=== PATIENT | male | born 1950 | race Asian ===

== ENCOUNTER 2019-02-07 09:20 | Emergency (ER) | payer OTHER, MEDICAID ==
[~2019-02-07] VITALS: Ht 162.6 cm; Wt 50.9 kg
[2019-02-07 09:26] VITALS: BP 186/98
--- NOTE | 2019-02-07 09:32 | NUR ---
TO BED 9 WITH STEADY GAIT WITH FAMILY.
--- NOTE | 2019-02-07 09:35 | NUR ---
68 Y MALE BIB FAMILY C/O YELLOW DIARRHEA AND PERIUMBILICAL ABD PAIN X 3 DAYS. TAKING IMODIUM WITHOUT RELIEF. DIARHHEA X 5 TODAY. PER FAMILY, PT HAS AN EPISODE EVERY 2 HOURS APPROX. DENIES BLOOD IN STOOL. NO N/V. PT ADMITS TO DRINKING FIVE TEQUILA SHOTS DAILY X 2 YEARS. LAST DRINK LAST WEEK. AA0X4. VSS AT THIS TIME. BED IS DOWN, LOCKED, EBD RAIL X 1,ERMD TO EVALUATE PT. HX: STOMACH ULCERS, ALCOHOL ABUSE RX: DENIES
--- NOTE | 2019-02-07 09:37 | NUR ---
DR CHNE AT BEDSIDE
[2019-02-07] MEDS ORDERED: NACL 0.9% 1,000 ML IV SCH (09:45)
[2019-02-07] MEDS ORDERED: DIPHENOXYLATE /ATROPINE 2.5 MG TAB PO ONE (09:45)
--- NOTE | 2019-02-07 09:55 | NUR ---
FINISHED METAL REPAIRER AT BEDSIDE TO DRAW LABS.
[2019-02-07 10:17] LABS: BASOPHILS # (AUTO) 0.1 K/uL (0.00-0.22); BASOPHILS % (AUTO) 1.4 % (0.0-2.0); EOSINOPHILS # (AUTO) 0.2 K/uL (0-0.4); EOSINOPHILS % (AUTO) 2.6 % (0.0-4.0); HEMOGLOBIN 11.9 g/dL (12.0-18.0); LYMPHOCYTES # (AUTO) 1.6 K/uL (2.0-11.5); LYMPHOCYTES % (AUTO) 21.7 % (20.5-51.1); MEAN CORPUSCULAR HEMOGLOBIN 25 pg (27-31); MEAN CORPUSCULAR HGB CONC 31 g/dL (33-37); MEAN CORPUSCULAR VOLUME 78.1 fL (80-94); MONOCYTES # (AUTO) 0.4 K/uL (0.8-1.0); MONOCYTES % (AUTO) 5.1 % (1.7-9.3); NEUTROPHILS # (AUTO) 5.2 K/uL (1.8-7.7); NEUTROPHILS % (AUTO) 69.2 % (42.2-75.2); PLATELET COUNT (AUTO) 429 K/uL (140-450); RED BLOOD CELL COUNT(AUTO) 4.87 MIL/uL (4.20-6.10); RED CELL DISTRIBUTION WIDTH 21.4 % (11.6-13.7); WHITE BLOOD COUNT (AUTO) 7.6 K/uL (4.8-10.8)
--- NOTE | 2019-02-07 10:30 | NUR ---
PT IN BED, AA0X4, FAMILY BEDSIDE
[2019-02-07 10:34] LABS: ALBUMIN 3.6 g/dL (3.4-5.0); ANION GAP 13.2 (8-16); CARBON DIOXIDE 24.8 mmol/L (21-32); CREATININE 1.1 mg/dL (0.7-1.3); TOTAL BILIRUBIN 0.3 mg/dL (0.0-1.0)
--- NOTE | 2019-02-07 11:04 | NUR ---
PT AMB TO BATHROOM
[2019-02-07 11:34] VITALS: BP 154/82
--- NOTE | 2019-02-07 11:34 | NUR ---
Patient discharged with v/s stable. Written and verbal after care instructions given and explained. Rx of LOMOTIL given. Patient educated on indication of medication including possible reaction and side effects. Opportunity to ask questions provided and answered.ID band removed. Patient advised to follow up with PMD.
== END 2019-02-07 11:34 | disposition home or self-care (01) ==
LOC: MED 09:20
DX: R19.7 Diarrhea, unspecified (principal); R10.10 Upper abdominal pain, unspecified; R63.0 Anorexia; F17.210 Nicotine dependence, cigarettes, uncomplicated
CPT/HCPCS: 36415; 80053; 81002; 83690; 85025; 93005; 96360; 99284; J7030

== ENCOUNTER 2019-08-23 13:44 | Inpatient (IN) | payer OTHER, MEDICAID ==
[~2019-08-23] VITALS: Ht 157.5 cm; Wt 46.7 kg
[2019-08-23 13:50] VITALS: BP 162/91
--- NOTE | 2019-08-23 14:10 | NUR ---
69/M BIB DAUGHTER. COMPLAINING OF DIARRHEA FOR 2X DAYS. DAUGHTER REPORTED PT WAS CONTIPATED A COUPLE DAYS AGO AND WAS GIVEN SUPPOSITORY ON 08/21/19 AND SINCE THEN HE HAS HAD DIARRHEA. BS X4 NON TENDER, VOMITING CNAT KEEP ANYTHING DOWN. PAIN IN "LOWER BACK AND ANUS" WHEN HAVING A BM. CHEMO WAS DONE TODAY IN THE MORNING, HAS BEEN RECEIVING IT IT FOR APPROXIMATELY ONE MOTNH. DAUGHTER AND AT BEDSIDE. PMHX: HTN RX: CHEMO, LOSARTAN, REGLAN
--- NOTE | 2019-08-23 14:35 | NUR ---
DR. CHEN AT BEDSIDE
[2019-08-23] MEDS ORDERED: NACL 0.9% 1,000 ML IV SCH (14:39)
--- NOTE | 2019-08-23 15:10 | NUR ---
PORT A CATH ACCESSED WITH A 20G NEEDLE USING STERILE TECHNIQUE. FLUSHES EASILY, UNABLE TO DRAW BLOOD, NO SIGN OF INFILTRATION.
--- NOTE | 2019-08-23 15:17 | NUR ---
LAB AT BEDSIDE
[2019-08-23 15:42] LABS: BASOPHILS % (AUTO) 0.3 % (0.0-2.0); EOSINOPHILS % (AUTO) 0.5 % (0.0-4.0); HEMATOCRIT 42.6 % (36-52); HEMOGLOBIN 13.8 g/dL (12.0-18.0); LYMPHOCYTES # (AUTO) 1.8 K/uL (2.0-11.5); LYMPHOCYTES % (AUTO) 21.8 % (20.5-51.1); MEAN CORPUSCULAR HEMOGLOBIN 28 pg (27-31); MEAN CORPUSCULAR HGB CONC 32 g/dL (33-37); MEAN CORPUSCULAR VOLUME 85.4 fL (80-94); MONOCYTES # (AUTO) 0.7 K/uL (0.8-1.0); MONOCYTES % (AUTO) 8.4 % (1.7-9.3); NEUTROPHILS # (AUTO) 5.6 K/uL (1.8-7.7); PLATELET COUNT (AUTO) 344 K/uL (140-450); RED BLOOD CELL COUNT(AUTO) 4.99 MIL/uL (4.20-6.10); RED CELL DISTRIBUTION WIDTH 18.8 % (11.6-13.7); WHITE BLOOD COUNT (AUTO) 8.1 K/uL (4.8-10.8)
[2019-08-23 15:49] LABS: APPEARANCE,URINE CLEAR (CLEAR); BILIRUBIN,URINE NEGATIVE (NEGATIVE); BLOOD, URINE NEGATIVE (NEGATIVE); COLOR,URINE YELLOW (YELLOW); LEUKOCYTE ESTERASE ,URINE NEGATIVE (NEGATIVE); NITRITE, URINE NEGATIVE (NEGATIVE); PH,URINE 6.5 (5.0-9.0); UGLUCOSE NEGATIVE (NEGATIVE)
--- NOTE | 2019-08-23 15:57 | NUR ---
pt at ct at this time
[2019-08-23 15:58] LABS: ANION GAP 14.9 (8-16); CARBON DIOXIDE 25.1 mmol/L (21-32); CREATININE 1.1 mg/dL (0.7-1.3)
[2019-08-23 16:00] LABS: PROTHROMBIN TIME 8.9 secs (10.8-13.4)
[2019-08-23 16:15] LABS: ALBUMIN 3.9 g/dL (3.4-5.0); TOTAL BILIRUBIN 0.8 mg/dL (0.0-1.0)
[2019-08-23] MEDS ORDERED: METO-485 PO (16:25)
[2019-08-23] MEDS ORDERED: LOSA25TA32 PO (16:25)
[2019-08-23] MEDS ORDERED: MEGE40SU1 PO (16:25)
[2019-08-23] MEDS ORDERED: ONDA4TAB PO (16:25)
--- NOTE | 2019-08-23 16:30 | NUR ---
# 16 FR Manzo catheter with 10 ml utilizing sterile technique. Immediate return of 1400 ml CLEAR YELLOW urine noted. Bedside drainage bag placed below level of bladder. Urine sample collected and sent to lab. Pt tolerated procedure WELL.
[2019-08-23] MEDS ORDERED: DOCUSATE SODIUM 100 MG GELCAP PO PRN (17:15)
[2019-08-23] MEDS ORDERED: HYDROcodone/APAP 5/325 MG 1 TAB TAB PO PRN (17:15)
[2019-08-23] MEDS ORDERED: ONDANSETRON 4 MG/2 ML VIAL IM/IVP PRN (17:15)
[2019-08-23] MEDS ORDERED: ACETAMINOPHEN 325 MG TAB PO PRN (17:15)
[2019-08-23] MEDS ORDERED: MORPHINE SULFATE 2 MG/ML SYR IVP PRN (17:15)
--- NOTE | 2019-08-23 17:50 | NUR ---
Pt arrived to room 108A from ED via gurney. Able to transfer to bed with min assist. Pt aaox4, no signs of distress, no c/o pain at this time. and daughter arrived with pt to room. Right subclavian port-a-cath access intact & asymptomatic. Manzo cath in place & draining clear light rios urine. Pt oriented to room & unit, verbalized understanding & able to return demonstrate proper use of call light. Will cont to monitor.
[2019-08-23] MEDS: DEXT 5% /NACL 0.9% 1,000 ML IV SCH (18:00)
--- NOTE | 2019-08-23 18:00 | NUR ---
PATIENT ADMITTED TO MED-SURG/ TELE TO 108-A. VSS. REPORT GIVEN TO MADY
--- NOTE | 2019-08-23 18:00 | NUR ---
Patient will be admitted to care of DR. WHITE. Admited to TELE. Will go to room 108-A. Belongings list completed. Report TO MADY.
[2019-08-23 18:10] LABS: BARBITURATE, URINE NEG. ng/ml (NEG <=200); BENZODIAZEPINE, URINE NEG. ng/mL (NEG <=200); CANNABINOID, URINE NEG. ng/mL (NEG <=50); COCAINE, URINE NEG. ng/mL (NEG <=300); OPIATE, URINE NEG. ng/mL (NEG <=2000); PHENCYCLIDINE SCREEN,URINE NEG. ng/mL (NEG <=25)
[2019-08-23] MEDS ORDERED: BISACODYL 10 MG SUPP RC SCH (18:15)
[2019-08-23] MEDS ORDERED: PANTOPRAZOLE 40 MG INJ VIAL IVP SCH (18:15)
--- NOTE | 2019-08-23 19:00 | NUR ---
Report given to pm nurse Jorden. Pt resting in bed, no distress, family at bedside.
--- NOTE | 2019-08-23 19:01 | NUR ---
Received endorsement from AM shift RN; patient A/Ox4, able to make needs known, Micronesian speaking, on bedrest. Patient talking with daughter and ; introduced self, updated board. No SOB or distress noted, on room air. IV site on right subclavian Port-A-Cath, running IVF at 70mL/hr. Manzo in place. Bed in the lowest position, call light within reach. Initial assessment done. Will continue to monitor.
[2019-08-23 19:32] LABS: MAGNESIUM 2.6 mg/dL (1.8-2.4); PHOSPHORUS 4.2 mg/dL (2.5-4.9); THYROID STIMULATING HORMONE 1.62 uIU/mL (0.34-3.74)
[2019-08-23 20:00] VITALS: BP 147/74
--- NOTE | 2019-08-23 20:02 | NUR ---
Influenza A & B and MRSA collected at this time. Stool culture could not be collected, smear BM noted.
[2019-08-23] MEDS ORDERED: ONDANSETRON 4 MG TAB PO PRN (20:10)
--- NOTE | 2019-08-23 20:10 | NUR ---
Asked Dr. Han about Flu and Pneumonia vaccine administration; stated we cannot administer due to patient receiving chemotherapy.
--- NOTE | 2019-08-23 20:40 | NUR ---
Vitals taken, no distress noted.
[2019-08-23] MEDS: DOCUSATE SODIUM 100 MG GELCAP PO SCH (21:09)
--- NOTE | 2019-08-23 21:45 | NUR ---
Due meds given, tolerated well.
[2019-08-23] MEDS ORDERED: PROMETHAZINE 25 MG/ML VIAL IM PRN (21:50)
[2019-08-23] MEDS ORDERED: methylPREDNISolone 4 MG TAB PO SCH (23:00)
[2019-08-23] MEDS ORDERED: SODIUM PHOSPHATE 118 ML ENEM RC SCH (23:00)
--- NOTE | 2019-08-23 23:15 | NUR ---
Fleet enema given at this time. Vitals taken, no SOB or distress noted.
[2019-08-24] VITALS: BP 134/71
--- NOTE | 2019-08-24 01:25 | NUR ---
Rounds done; patient asleep, eyes closed, visible chest rise and fall noted.
--- NOTE | 2019-08-24 03:45 | NUR ---
Vitals taken, patient asleep, visible chest rise and fall noted.
[2019-08-24 04:00] VITALS: BP 122/77
--- NOTE | 2019-08-24 06:30 | NUR ---
Vitals stable, due meds given. Will endorse to AM shift RN for continuity of care.
[2019-08-24] MEDS: DEXT 5% /NACL 0.9% 1,000 ML IV SCH ×2 (06:34→21:47)
[2019-08-24 06:59] LABS: BASOPHILS % (AUTO) 0.5 % (0.0-2.0); EOSINOPHILS # (AUTO) 0.1 K/uL (0-0.4); EOSINOPHILS % (AUTO) 2.1 % (0.0-4.0); HEMATOCRIT 35.8 % (36-52); HEMOGLOBIN 11.7 g/dL (12.0-18.0); LYMPHOCYTES # (AUTO) 2.1 K/uL (2.0-11.5); MEAN CORPUSCULAR HEMOGLOBIN 28 pg (27-31); MEAN CORPUSCULAR HGB CONC 33 g/dL (33-37); MEAN CORPUSCULAR VOLUME 85.4 fL (80-94); MONOCYTES # (AUTO) 0.5 K/uL (0.8-1.0); MONOCYTES % (AUTO) 7.5 % (1.7-9.3); NEUTROPHILS # (AUTO) 3.6 K/uL (1.8-7.7); NEUTROPHILS % (AUTO) 56.9 % (42.2-75.2); PLATELET COUNT (AUTO) 294 K/uL (140-450); RED BLOOD CELL COUNT(AUTO) 4.19 MIL/uL (4.20-6.10); WHITE BLOOD COUNT (AUTO) 6.4 K/uL (4.8-10.8)
--- NOTE | 2019-08-24 07:10 | NUR ---
RECIEVED BEDSIDE REPORT FROM DIGITAL MARKETER NURSE. PATIENT ALERT AND ORIENTED X4. NO SIGNS OF DISTRESS. ON RA. SKIN IS INTACT. RIGHT CHEST PORTACATH AT D5NS AT 70ML/HR CLEAN, DRY, AND INTACT. PATIENT IS CONTINENT, MCINTOSH IN PLACE PATENT. AMBULATORY. ABLE TO MAKE NEEDS KNOWN. BED IN LOW POSITION. CALL LIGHT WITHIN REACH. WILL CONTINUE TO MONITOR.
[2019-08-24] MEDS ORDERED: ONDANSETRON 4 MG TAB PO PRN (07:15)
[2019-08-24 07:19] LABS: MAGNESIUM 2.4 mg/dL (1.8-2.4); PHOSPHORUS 2.8 mg/dL (2.5-4.9)
[2019-08-24 07:22] LABS: CARBON DIOXIDE 20.6 mmol/L (21-32); POTASSIUM 3.6 mmol/L (3.5-5.1)
[2019-08-24 07:23] LABS: CREATININE 0.8 mg/dL (0.7-1.3)
[2019-08-24 07:39] LABS: CHOL/HDL RATIO 3.3 (1-4.5)
[2019-08-24 08:00] VITALS: BP 139/87
[2019-08-24] MEDS ORDERED: BISACODYL 10 MG SUPP RC SCH (08:00)
[2019-08-24] MEDS: LOSARTAN 25 MG TAB PO SCH (08:35)
[2019-08-24] MEDS: DOCUSATE SODIUM 100 MG GELCAP PO SCH ×2 (08:37→21:08)
[2019-08-24] MEDS: PANTOPRAZOLE 40 MG INJ VIAL IVP SCH (08:37)
[2019-08-24] MEDS: MEGESTROL 400 MG/10 ML UDC PO SCH (08:38)
[2019-08-24] MEDS: METOCLOPRAMIDE 10 MG TAB PO SCH (08:39)
--- NOTE | 2019-08-24 08:40 | NUR ---
PATIENT HAS BEEN SCREENED AND CATEGORIZED HIGH NUTRITION RISK. PATIENT WILL BE SEEN WITHIN 1-2 DAYS OF ADMISSION. 08/24/19-08/25/[address]
[2019-08-24] MEDS: methylPREDNISolone 4 MG TAB PO SCH (08:41)
--- NOTE | 2019-08-24 08:55 | NUR ---
ADMINISTERED MEDS. PATIENT TOLERATED WELL. EDUCATED ON SIDE EFFECTS. WILL CONTINUE TO MONITOR THE PATIENT.
[2019-08-24] MEDS ORDERED: MINERAL OIL 135 ML ENEM RC ONE (10:00)
--- NOTE | 2019-08-24 10:20 | NUR ---
PATIENT HAD MEDIUM BM. PARACHUTE CUSHION INSTALLER UNAWARE STOOL SAMPLE NEEDED. WILL GET STOOL SAMPLE WITH THE NEXT BM. ADMINISTERED MINERAL OIL ENEMA. PATIENT TOLERATED WELL. LEFT-SIDE LYING AT THIS TIME. WILL CONTINUE TO MONITOR. AT BEDSIDE.
[2019-08-24] MEDS ORDERED: KETOROLAC 15 MG/ML VIAL IVP PRN (10:50)
--- NOTE | 2019-08-24 12:00 | NUR ---
PATIENT IN NO DISTRESS. WILL CONTINUE TO MONITOR THE PATIENT.
--- NOTE | 2019-08-24 12:37 | NUR ---
08/24/19 RD INITIAL ASSESSMENT COMPLETED PLEASE REFER TO NUTRITION ASSESSMENT UNDER CARE ACTIVITY FOR ESTIMATED NUTRITIONAL NEEDS. 1. RECOMMEND NA2GM PUREE DIET TOLERATED 2. RECOMMEND ENSURE TID 3. RD TO FOLLOW-UP 2-3 DAYS, HIGH RISK NATHANIEL KIMBALL, RD
--- NOTE | 2019-08-24 14:30 | NUR ---
PATIENT RESTING IN BED. AT BEDSIDE.
[2019-08-24] MEDS ORDERED: LACTULOSE 20 GM/30 ML UDC PO SCH (15:00)
--- NOTE | 2019-08-24 15:00 | NUR ---
STOOL COLLECTED AND WAS SENT TO LAB
--- NOTE | 2019-08-24 16:14 | NUR ---
administered meds. patient tolerated well. educated on side effects. no signs of distress. will continue to monitor the patient.
--- NOTE | 2019-08-24 18:00 | NUR ---
PATIENT RESTING IN BED. NO SIGNS OF DISTRESS. WILL CONTINUE TO MONITOR THE PATIENT.
--- NOTE | 2019-08-24 19:20 | NUR ---
gave bedside report to assistant shift supervisor nurse. PATIENT ENDORSED IN STABLE CONDITION.
--- NOTE | 2019-08-24 19:30 | NUR ---
RECEIVED BEDSIDE REPORT FROM AM SHIFT RN JOCY, FOR PT'S CONTINUITY OF CARE. PT IS AAO X4, WATCHING TV, FAMILY MEMBER AT BEDSIDE, IS ON ROOM AIR, HAS RIGHT SUBCLAVIAN PORTACATH, DENIES ANY PAIN AT THIS TIME. EXPLAINED TO PT AND FAMILY MEMBER THE PROPERTY MANAGEMENT BOOKKEEPER ROUTINE, THEY VERBALIZED UNDERSTANDING. SAFETY MEASURES IN PLACE. FALL PRECAUTION IN PLACE. CALL LIGHT IS WITHIN REACH. WILL MONITOR PT THROUGHOUT SHIFT.
--- NOTE | 2019-08-24 21:08 | NUR ---
ADMINISTERED SCHEDULED MEDICATIONS ORDERED. PT TOLERATED THEM WELL. PT TEACHING GIVEN REGARDING MEDICATION. PT VERBALIZED UNDERSTANDING. WILL CONTINUE TO MONITOR PT.
--- NOTE | 2019-08-24 23:30 | NUR ---
VS CHECKED AND CHARTED. PT DENIES ANY PAIN AT THIS TIME. WILL CONTINUE TO MONITOR PT.
[2019-08-25] VITALS: BP 125/77
[2019-08-25] MEDS: DEXT 5% /NACL 0.9% 1,000 ML IV SCH ×2 (00:20→17:10)
--- NOTE | 2019-08-25 02:00 | NUR ---
MADE ROUNDS. PT ASLEEP WITH NO SIGNS OF DISTRESS. WILL CONTINUE TO MONITOR PT.
--- NOTE | 2019-08-25 04:30 | NUR ---
MADE ROUNDS. PT ASLEEP WITH NO SIGNS OF DISTRESS. WILL CONTINUE TO MONITOR PT.
[2019-08-25 06:06] LABS: BASOPHILS % (AUTO) 0.5 % (0.0-2.0); EOSINOPHILS # (AUTO) 0.1 K/uL (0-0.4); EOSINOPHILS % (AUTO) 1.7 % (0.0-4.0); HEMATOCRIT 35.9 % (36-52); HEMOGLOBIN 11.9 g/dL (12.0-18.0); LYMPHOCYTES # (AUTO) 2.1 K/uL (2.0-11.5); LYMPHOCYTES % (AUTO) 37.3 % (20.5-51.1); MEAN CORPUSCULAR HEMOGLOBIN 28 pg (27-31); MEAN CORPUSCULAR HGB CONC 33 g/dL (33-37); MEAN CORPUSCULAR VOLUME 85.5 fL (80-94); MONOCYTES # (AUTO) 0.4 K/uL (0.8-1.0); MONOCYTES % (AUTO) 6.6 % (1.7-9.3); NEUTROPHILS # (AUTO) 3.1 K/uL (1.8-7.7); NEUTROPHILS % (AUTO) 53.9 % (42.2-75.2); PLATELET COUNT (AUTO) 290 K/uL (140-450); RED CELL DISTRIBUTION WIDTH 17.9 % (11.6-13.7); WHITE BLOOD COUNT (AUTO) 5.7 K/uL (4.8-10.8)
[2019-08-25 06:17] LABS: CARBON DIOXIDE 20.1 mmol/L (21-32); CREATININE 0.8 mg/dL (0.7-1.3); POTASSIUM 4.1 mmol/L (3.5-5.1)
--- NOTE | 2019-08-25 06:30 | NUR ---
PT AWAKE, LYING DOWN IN BED DENIES ANY PAIN. WILL ENDORSE TO AM SHIFT RN FOR PT'S CONTINUITY OF CARE.
--- NOTE | 2019-08-25 07:03 | NUR ---
RECEIVED REPORT FROM VORTEX OPERATOR NURSE. PT AAOX4, AT BEDSIDE, NO C/O PAIN. NOTED RT SUBCLAVIAN PORT-A-CATH RUNNING IVF PER ORDER. RESPIRATIONS EVEN AND UNLABORED ON RA. ABD SOFT, ACTIVE BS, LBM 08/25 LIQUID BUT NON-WATERY STOOL. PT HAS F/C IN PLACE, DRAINING YELLOW URINE. PT ON FALL RISK PRECAUTIONS, SAFETY MEASURES IN PLACE, CALL LIGHT WITHIN REACH. REVIEWED POC WITH PT AND FAMILY, VERBALIZED UNDERSTANDING.
[2019-08-25 08:00] VITALS: BP 139/73
[2019-08-25] MEDS ORDERED: BISACODYL 10 MG SUPP RC SCH (09:00)
[2019-08-25] MEDS ORDERED: MAGNESIUM HYDROXIDE 2400 MG/30 ML UDC PO SCH (09:00)
[2019-08-25] MEDS ORDERED: MINERAL OIL 135 ML ENEM RC SCH (09:00)
[2019-08-25] MEDS: MEGESTROL 400 MG/10 ML UDC PO SCH (09:41)
[2019-08-25] MEDS: DOCUSATE SODIUM 100 MG GELCAP PO SCH ×2 (09:42→20:34)
[2019-08-25] MEDS: METOCLOPRAMIDE 10 MG TAB PO SCH (09:42)
[2019-08-25] MEDS: PANTOPRAZOLE 40 MG INJ VIAL IVP SCH (09:43)
[2019-08-25] MEDS: LOSARTAN 25 MG TAB PO SCH (09:43)
[2019-08-25] MEDS: methylPREDNISolone 4 MG TAB PO SCH (09:44)
--- NOTE | 2019-08-25 09:44 | NUR ---
ADMINISTERED MEDICATIONS PER ORDER, PT IS AWARE OF INDICATIONS AND POTENTIAL SIDE EFFECTS FOR EACH MEDICATION. INSTRUCTED PT TO HOLD MINERAL OIL ENEMA TOLERATED, PT VERBALIZED UNDERSTANDING.
--- NOTE | 2019-08-25 10:08 | NUR ---
PT HAD BOWEL MOVEMENT, LIQUID BUT NON-WATERY. ADMINISTERED SUPPOSITORY PER ORDER, PT IS AWARE OF INDICATIONS AND POTENTIAL SIDE EFFECTS.
--- NOTE | 2019-08-25 12:15 | NUR ---
PT HAS NO SIGNS OF DISTRESS AT THIS TIME. AND VISITORS AT BEDSIDE.
--- NOTE | 2019-08-25 14:50 | NUR ---
PT RESTING IN RIGHT LATERAL SIDE, RESPIRATIONS EVEN AND UNLABORED ON RA.
[2019-08-25 16:00] VITALS: BP 125/74
--- NOTE | 2019-08-25 17:10 | NUR ---
ADMINISTERED IVF PER ORDER. PT HAS NO C/O PAIN AT THIS TIME.
--- NOTE | 2019-08-25 18:30 | NUR ---
TOTAL URINE OUTPUT FOR SHIFT IS 1,100 ML OF CLEAR AND YELLOW URINE. DISCONTINUED F/C AT THIS TIME. PT TOLERATED WELL.
--- NOTE | 2019-08-25 19:15 | NUR ---
ENDORSED PT TO PAINTER AND BODY WORK NURSE. PT HAS NO SIGNS OF DISTRESS AT THIS TIME.
--- NOTE | 2019-08-25 19:16 | NUR ---
RECEIVED BEDSIDE REPORT FROM AM SHIFT RN FOR PT'S CONTINUITY OF CARE. PT IS AAO X4, AMBULATORY. WITH AT BEDSIDE, IS ON ROOM AIR, HAS RIGHT SUBCLAVIAN PORTACATH WITH IV D5NS AT 70 ML/HR. MONITORING FOR URINE OUTPUT AFTER MCINTOSH CATHETER D/ C. DENIES ANY PAIN AT THIS TIME. FALL RISK IN PLACE SAFETY MEASURES IN PLACE. F CALL LIGHT IS WITHIN REACH. WILL CONTINUE TO MONITOR PATIENT
[2019-08-25 20:00] VITALS: BP 135/76
--- NOTE | 2019-08-25 21:00 | NUR ---
PATIENT CCHG BATH GIVEN. PT TOLERATED PROCEDURE Addendum: 08/26/19 at 0031 by Tati Frias RN CHG BATH GIVEN Addendum: 08/26/19 at 0038 by Tati Frias RN AMEND TIME TO [id number]
--- NOTE | 2019-08-25 23:10 | NUR ---
HEALTH TEACHINGS DONE TO PATIENT ENCOURAGED TO DRINK WATER; STILL NO URINE OUTPUT
--- NOTE | 2019-08-26 00:44 | NUR ---
PATIENT HAS DRANK SMALL AMOUUNT OF WATER; ENCOURAGED TO DRINK OR INCREASE ORAL FLUID INTAKE; INFORMED DR. FLANAGAN NO URINE OUTPUT YET. NO COMPLAINTS FROM PATIENT OF URINARY BLADDER PAIN; NO URINARY DISTENTION NOTED UPON PALPATION.
--- NOTE | 2019-08-26 01:00 | NUR ---
PT HAD A URINE OUTPUT 100 ML X 1, VOIDING FREELY
--- NOTE | 2019-08-26 02:15 | NUR ---
PT TRYING TO SLEEP, EASILY AWAKENED, NO COMPLAINTYS AT THIS TIME. NO ABDOMINAL DISTENTION. NOT IN PAIN
--- NOTE | 2019-08-26 03:15 | NUR ---
PT TALKING ABOUT WANTING TO LEAVE REASSURED HER, AND PROVIDED COMFORT WILL CONTINUE TO MONITOR
--- NOTE | 2019-08-26 04:26 | NUR ---
PT SLEEPING, NOT IN RESPIRATORY DISTRESS WILL CONTINUE TO MONITOR
--- NOTE | 2019-08-26 05:42 | NUR ---
PT AWAKE, ASKED FOR WARM BLANKET WAS COLD. WILL CONTINUE TO MONITOR
--- NOTE | 2019-08-26 07:00 | NUR ---
PT AWAKE NOW, NOT IN RESPIRATORY DISTRESS, PT IN STABLE CONDITION.WILL ENDORSE TO NEXT SHIFT
--- NOTE | 2019-08-26 07:10 | NUR ---
RECEIVED REPORT FROM THE AMMONIA REFRIGERATION WORKER NURSE. PT IS AWAKE AND ORIENTED. AT BEDSIDE. PT IS ON ROOM AIR, SKIN INTACT. CENTRAL MEDIPORT ON R CHEST D5NS AT 70ML INFUSING. WILL NEED TO CHANGE FLUIDS WHEN PASSING MEDS. NO COMPLAINTS OF PAIN. V/S STABLE. POSSIBLE D/C TODAY. WILL CONTINUE TO MONITOR PT.
[2019-08-26 08:00] VITALS: BP 134/78
[2019-08-26] MEDS ORDERED: POLY17PD46 PO (08:59)
[2019-08-26] MEDS ORDERED: DOCU-299 PO (08:59)
[2019-08-26] MEDS ORDERED: SENN-74 PO (08:59)
[2019-08-26] MEDS ORDERED: SENNA 8.6 MG TAB PO SCH (09:00)
[2019-08-26] MEDS ORDERED: POLYETHYLENE GLYCOL 17 GM/PKT PO SCH (09:00)
[2019-08-26] MEDS: LOSARTAN 25 MG TAB PO SCH (09:08)
[2019-08-26] MEDS: PANTOPRAZOLE 40 MG INJ VIAL IVP SCH (09:08)
[2019-08-26] MEDS: DOCUSATE SODIUM 100 MG GELCAP PO SCH (09:08)
[2019-08-26] MEDS: METOCLOPRAMIDE 10 MG TAB PO SCH (09:09)
[2019-08-26] MEDS: MEGESTROL 400 MG/10 ML UDC PO SCH (09:09)
[2019-08-26] MEDS: methylPREDNISolone 4 MG TAB PO SCH (09:11)
[2019-08-26] MEDS: DEXT 5% /NACL 0.9% 1,000 ML IV SCH (09:12)
--- NOTE | 2019-08-26 09:15 | NUR ---
ADMINISTERED MORNING MEDS AND IVF. PT TOLERATED WELL. NO DISTRESS NOTED. WANTING TO KNOW WHEN HE WILL BE DISCHARGED. WILL NOTIFY PT WHEN D/C ORDER IS IN.
--- NOTE | 2019-08-26 12:30 | NUR ---
GAVE D/C INSTRUCTIONS TO PT AND SPOUSE. PT VERBALIZED UNDERSTANDING. NO NEW SCRIPTS. PT IS TO F/U WITH DR MOON ON AUG 30 AT 0830. PT AWARE. FOR FLU SHOT, WILL SPEAK TO PCP IF OK TO GET. PT IS CURRENTLY ON CHEMO. PT HAS NO RIDE UNTIL 1700. WILL LET ME KNOW IF THERE IS SOMEONE ELSE WHO CAN COME GET HIM. WILL CONTINUE TO MONITOR PT.
--- NOTE | 2019-08-26 15:15 | NUR ---
PT WANTED TO WAIT FOR DAUGHTER IN THE LOBBY. REMOVED THE DUVAL NEEDLE FROM MEDIPORT. NO BLEEDING NOTED. WHEELCHAIRED PT OUT TO THE LOBBY. AT HIS SIDE. PERSONAL BELONGINGS WITH PT.
== END 2019-08-26 15:15 | disposition home or self-care (01) | DRG 375 ==
LOC: MED 13:44 → MTU 17:18
PROVIDERS: ADMIT General Practice; ATTEND General Practice
DX: C16.9 Malignant neoplasm of stomach, unspecified (principal); N13.1 Hydronephrosis with ureteral stricture, not elsewhere classified; Z68.1 Body mass index [BMI] 19.9 or less, adult; R62.7 Adult failure to thrive; K56.41 Fecal impaction; I10 Essential (primary) hypertension; E83.41 Hypermagnesemia; N28.1 Cyst of kidney, acquired; E86.0 Dehydration; Z85.9 Personal history of malignant neoplasm, unspecified; Z87.891 Personal history of nicotine dependence; Z85.3 Personal history of malignant neoplasm of breast; Z85.46 Personal history of malignant neoplasm of prostate; T45.1X5A Adverse effect of antineoplastic and immunosuppressive drugs, initial encounter; Y92.89 Other specified places as the place of occurrence of the external cause
CPT/HCPCS: 36415; 51702; 71045; 74018; 76705; 76770; 80048; 80053; 80305; 81003; 83036; 83605; 83690; 83735; 84100; 84443; 85025; 85610; 85730; 87040; 87045; 87081; 87804; 89055; 93005; 96360; 97110; 97116; 97161-GP; 97530; 99285; C9113; J1644; J7042; J7509; J8597; Q0092